=== PATIENT | female | born 1995 | race Caucasian/White ===

== ENCOUNTER → 2016-11-08 | Outpatient (CLI) | payer OTHER ==
[~2016-11-08] MED LIST: FERR325T PO; IBUP-232 PO; PRENCAP PO; SENN1TAB PO; UNIS25TA2 PO; VITA25TA PO
== END ==
LOC: HPND 08:45
PROVIDERS: ATTEND Family Medicine
DX: Z36 Encounter for antenatal screening of mother (principal)
CPT/HCPCS: 76811

== ENCOUNTER → 2016-12-26 | Outpatient (CLI) | payer OTHER | LOC: HPND 09:30 | PROVIDERS: ATTEND Family Medicine | DX: O99.332 Smoking (tobacco) complicating pregnancy, second trimester (principal); Z3A.26 26 weeks gestation of pregnancy | CPT/HCPCS: 76816 ==

== ENCOUNTER → 2017-01-23 | Outpatient (CLI) | payer OTHER ==
[~2017-01-23] MED LIST changes: -UNIS25TA2 PO; -VITA25TA PO
== END ==
LOC: HPND 09:41
PROVIDERS: ATTEND Family Medicine
DX: O36.5930 Maternal care for other known or suspected poor fetal growth, third trimester, not applicable or unspecified (principal); O99.333 Smoking (tobacco) complicating pregnancy, third trimester; Z3A.32 32 weeks gestation of pregnancy
CPT/HCPCS: 76816

== ENCOUNTER → 2017-02-14 | Outpatient (CLI) | payer OTHER | LOC: HPND 10:14 | PROVIDERS: ATTEND Family Medicine | DX: O36.5930 Maternal care for other known or suspected poor fetal growth, third trimester, not applicable or unspecified (principal); O99.333 Smoking (tobacco) complicating pregnancy, third trimester; Z3A.35 35 weeks gestation of pregnancy | CPT/HCPCS: 76816 ==

== ENCOUNTER 2017-03-06 10:41 | Inpatient (IN) | payer OTHER ==
[2017-03-06] VITALS (13 sets, daily range): BP systolic 108–124; BP diastolic 67–87; PULSE 72–81; RESP 16–20; TEMP 97.6–98.2
[~2017-03-06 10:41] MED LIST changes: -IBUP-232 PO; -SENN1TAB PO
[2017-03-06] MEDS ORDERED: LACTATED RINGER'S 1000 ML INJ 1,000 ML IV PRN (12:12)
[2017-03-06] MEDS ORDERED: MINERAL OIL 10 ML VIAL TOPICAL PRN (12:15)
[2017-03-06] MEDS ORDERED: SODIUM CHLORID 0.9% 500 ML INJ 500 ML IV PRN (12:15)
[2017-03-06] MEDS ORDERED: OXYTOCIN 30 UNITS-500ML PREMIX 500 ML IV ONE (12:15)
[2017-03-06] MEDS ORDERED: CITRIC ACID-SODIUM CITRATE LIQ 30 ML UDC PO SCH (12:15)
[2017-03-06] MEDS ORDERED: LIDOCAINE HCL 1% 50 ML VIAL INFIL PRN (12:15)
[2017-03-06] MEDS ORDERED: LIDOCAINE HCL 1% 50 ML VIAL I-DERMAL PRN (12:15)
--- NOTE | 2017-03-06 12:22 | HHI.HP ---
HPI Chief Complaint Induction of Labor for IUGR Date Seen: Mar 06, 2017 Time Seen: 12:15 Travel History International Travel<30 Days: No Contact w/Intl Traveler<30Days: No History of Present Illness HPI Patient is a 28-year-old at 38 and 5/7 weeks gestation by LMP, GOMEZ 03/15/2017 , who presents as a direct admission from [facility] due to IUGR. She has been following with [facility] for IUGR, which is asymmetric, and [facility] recommends delivery per report on 03/06/17. She denies leakage of fluid, vaginal bleeding, and contractions. She feels baby moving regularly. She denies LAGOS/N/V/D /fever/sick contacts/SOB/calf pain/dizziness/seeing spots. OB care is with Dr. George at the [facility]. Para: 0 : 2 History Past Medical History Medical History: Denies Significant Hx Obstetric History Obstetric History G1: 12 week SAB G2: current Past Surgical History Surgical History: No Previous Surgery Family History Family History: Negative Social History Alcohol Use: No Tobacco Use: Yes (1 pack per week. Was using 1-2PPD in early ) Substance Abuse: No Allergies-Medications (Allergen,Severity, Reaction): Coded Allergies: No Known Allergies (Verified , 03/05/17) Home Meds Active Scripts Ferrous Sulfate 325 Mg [id number] Mg PO DAILY #90 TAB Ref 1 Prov:Zaira George MD R2 01/09/17 W/O Vit A W/ Fe Carbo (Active Ob 20-1-320 mg)1 Cap Cap1 Cap PO DAILY # 30 CAP Ref 6 Prov:Amador Hinton Jr., MD 07/23/16 Review of Systems Except as stated in HPI: all other systems reviewed are Neg Physical Exam Narrative GENERAL: Well-nourished, well-developed female in no apparent distress. SKIN: Warm and dry. No rashes. HEAD: Normocephalic and atraumatic. EYES: No scleral icterus. No injection or drainage. ENT: No nasal drainage noted. Mucous membranes pink. Airway patent. NECK: Supple, trachea midline. No JVD. CARDIOVASCULAR: Regular rate and rhythm without murmurs, gallops, or rubs. RESPIRATORY: Breath sounds equal bilaterally. No accessory muscle use. BREASTS: Bilateral exam showed no masses , no retractions, no nipple discharge. ABDOMEN/GI: Abdomen soft, non-tender, bowel sounds present, no rebound, no guarding Fundal Height: 29cm GENITOURINARY: External Genitalia: intact and normal in appearance Cervix: fingertip @ external os/0%/-3/medium/posterior. Rodrigues's Score is 1 Presentation: vertex Membranes: [intact or ruptured] Uterine Contractions: absent FHT's: Category: 1 Baseline: [-] Reactive: [-] Variability: [-] Decels: [-] EXTREMITIES: No cyanosis or edema. BACK: Nontender without obvious deformity. No CVA tenderness. NEUROLOGICAL: Awake and alert. Motor and sensory grossly within normal limits. Five out of 5 muscle strength in all muscle groups. Normal speech. Data Data Vital Signs Reviewed: Yes (not available on admission) Orders Us Ob Bpp Wo Nst Ua/Mca Dp Rpt (03/06/17 ) Admit To Inpatient (03/06/17 ) Code Status (03/06/17 12:12) Vital Signs (Adult) .Per protocol (03/06/17 12:12) Activity Oob Ad Justyna (03/06/17 12:12) Heart (03/06/17 12:12) Amnioinfusion (03/06/17 12:12) Urinary Catheter Management .ONCE (03/06/17 12:12) Lactated Ringer's 1000 Ml Inj (Lr 1000 M (03/06/17 12:12) Lactated Ringer's 1000 Ml Inj (Lr 1000 M (03/06/17 12:12) Sodium Chlorid 0.9% 500 Ml Inj (Ns 500 M (03/06/17 12:15) Sodium Chlor 0.9% 1000 Ml Inj (Ns 1000 M (03/06/17 12:32) Lidocaine 1% Inj (50 Ml) (Xylocaine 1% I (03/06/17 12:15) Citric Acid-Sodium Citrate Liq (Bicitra (03/06/17 12:15) Fentanyl Inj (Fentanyl Inj) (03/06/17 12:15) Fentanyl Inj (Fentanyl Inj) (03/06/17 12:15) Complete Blood Count With Diff (03/06/17 12:12) Hold Clot (03/06/17 12:12) Abo/Rh Blood Type (03/06/17 12:12) Urinalysis - C+S If Indicated (03/06/17 12:12) Resp Oxygen Non Rebreathe Mask (03/06/17 ) ^ Epidural / Intrathecal Infus (03/06/17 12:12) Oxytocin 30 Units-500ml Premix (Pitocin (03/06/17 12:15) Lidocaine 1% Inj (50 Ml) (Xylocaine 1% I (03/06/17 12:15) Light Mineral Oil (Muri-Lube Oil) (03/06/17 12:15) Diet Regular Basic (03/06/17 Lunch) Inpatient Certification (03/06/17 ) Specimen To Be Collected PRN (03/06/17 12:12) Assessment/Plan Assessment and Plan Intrauterine , 3rd trimester: [Category 1 tracing] Vaginal delivery expected No CTX Intact membranes Will proceed with induction of labor with Cytotec 25mcg every 4 hr Desires epidural for pain CBC, UA, T&S UDS will be ordered due to report of marijuana use. She denies other illicit marijuana. IV fluids per protocol Monitor heart tones Routine care Intrauterine Growth Restriction, 8%ile: Asymmetric, 8th percentile, EFW 2632g. SILVANO 12.1. BPP 8/8. Cephalic presentation. Placenta posterior grade 3, no previa. GBS negative: collected 02/25/2017 Seen and discussed with Dr. Lorenzana, attending and Dr. Rodriguez PGY-2 Loraine Muhammad MD R1 Mar 06, 2017 12:22
[2017-03-06] MEDS ORDERED: SODIUM CHLOR 0.9% 1000 ML INJ 1,000 ML IV PRN (12:32)
[2017-03-06] MEDS ORDERED: MISOPROSTOL 25 MCG SUPP VAGINAL ONE (13:15)
[2017-03-06] MEDS ORDERED: SODIUM CHLORIDE 0.9% FLUSH 10 ML FLUSH IV FLUSH PRN (13:15)
--- NOTE | 2017-03-06 13:40 | HHI.HP ---
History & Physical H&P Patient is 21-year-old white female at 38-39 weeks referred to labor and delivery from [facility] for induction for IUGR. She has no complaints problems at this time no bleeding pain discharge, heart rate tracing is reactive and she is not smith. Ultrasound findings today showed baby at 34 weeks 4 day size +2600 g and is been off the chart is less than the 10th percentile on growth. There is no oligohydramnios, the end-diastolic flow on umbilical cord is normal and placenta is grade 3 the patient's case was reviewed with maternal- medicine who recommended induction of labor at 38 weeks due to intrauterine growth restriction. Physical exam was done by the family medicine residents and agree with their assessment. Patient's cervix is fingertip external os uneffaced and closed at the internal os, baby in vertex presentation according ultrasound done today. Plan to cervical ripening for this patient with Cytotec through the night and then began Pitocin the morning and hopefully with artificial rupture the membranes as well Benjie Lorenzana II, MD Mar 06, 2017 13:40
[2017-03-06 14:05] LABS: AUTOMATED NEUTROPHIL # 7.4 TH/MM3 (1.8-7.7); BASOPHIL % 0.4 % (0.0-2.0); EOSINOPHIL # 0.2 TH/MM3 (0-0.4); EOSINOPHIL % 2.2 % (0.0-4.0); HEMATOCRIT 35.1 % (35.0-46.0); HEMO FLAGS DIFF FINAL; LYMPH % 22.6 % (9.0-44.0); LYMPHOCYTE # 2.5 TH/MM3 (1.0-4.8); MEAN CELL VOLUME 90.3 FL (80.0-100.0); MEAN CORPUSCULAR HEMOGLOBIN 30.4 PG (27.0-34.0); MEAN CORPUSCULAR HGB CONC 33.6 % (32.0-36.0); MONO % 8.4 % (0.0-8.0); NEUT % 66.4 % (16.0-70.0); PLATELET COUNT 184 TH/MM3 (150-450); RED BLOOD COUNT 3.88 MIL/MM3 (4.00-5.30); RED CELL DISTRIBUTION WIDTH 13.2 % (11.6-17.2); WHITE BLOOD COUNT 11.2 TH/MM3 (4.0-11.0)
[2017-03-06] MEDS: LACTATED RINGER'S 1000 ML INJ 1,000 ML IV SCH ×2 (14:13→20:56)
[2017-03-06] MEDS ORDERED: ACETAMINOPHEN 325 MG TAB PO PRN (14:15)
[2017-03-06 14:17] LABS: BACTERIA, URINE OCC /hpf; BLOOD, URINE NEG (NEG); GLUCOSE,URINE NEG (NEG); KETONE, URINE NEG (NEG); NITRITE,URINE NEG (NEG); SQUAMOUS EPITHELIAL CELL URINE 25 /hpf (0-5); TRANSITIONAL EPI CELLS, URINE <1 /hpf; URINE COLOR YELLOW (YELLW/STRAW)
[2017-03-06 14:19] LABS: COMMENT (UR) CULTURE INDICATED; CULTURE IF INDICATED CULTURE INDICATED
[2017-03-06 14:28] LABS: AMPHETAMINE, URINE NEG (NEG); BARBITURATES, URINE NEG (NEG); COCAINE, URINE NEG (NEG)
--- NOTE | 2017-03-06 17:01 | PD.LABORPN ---
Subjective Subjective Patient resting comfortably in bed. Endorses movement but denies feeling contractions. No acute concerns at this time. Objective Vital Signs Vital Signs Date Time Temp Pulse Resp B/P Pulse Ox O2 Delivery O2 Flow Rate FiO2 03/06/17 16:49 97.6 03/06/17 12:30 16 03/06/17 12:22 98.2 Objective Pelvic Exam at 1415: Cervix: Mid position, soft Dilatation: 1 Effacement: 0 Station: -2 Presentation: [-] Membranes: Intact Uterine Contractions: q2 FHT's: Category: 1 Baseline: 125 Reactive: Accelerations present Variability: Moderate Decels: None Assessment/Plan Assessment and Plan 21-year-old female at 38/5. Admitted for induction due to IUGR 1. IUP: * Routine labor care * Category 1 tracing reassuring, * IUGR found on ultrasound which is now less than 8th % * Induction with Cytotec q4 * Vaginal delivery expected, with good contraction pattern 2. GBS negative 3. Tobacco and marijuana use * Patient has decreased use frequency since beginning of * Has previously been counseled about importance of cessation sdw Zaira Dunlap MD R2 Mar 06, 2017 17:01
--- NOTE | 2017-03-06 18:52 | PD.LABORPN ---
Subjective Subjective Resting comfortably. Will intermittently feel contractions but they are not painful. No other concerns at this time Objective Vital Signs Vital Signs Date Time Temp Pulse Resp B/P Pulse Ox O2 Delivery O2 Flow Rate FiO2 03/06/17 18:25 74 121/70 03/06/17 18:24 20 03/06/17 16:49 97.6 03/06/17 16:15 18 03/06/17 12:30 16 03/06/17 12:22 98.2 Objective Pelvic Exam at 1815: Cervix: soft Dilatation: 1 Effacement: 50 Station: -1 Presentation: [-] Membranes: intact Uterine Contractions: q2-4min FHT's: Category: 1 Baseline: 130 Reactive: accels present Variability: moderate Decels: none Assessment/Plan Assessment and Plan 21-year-old female at 38/5. Admitted for induction due to IUGR 1. IUP: * Routine labor care * Category 1 tracing reassuring, * IUGR found on ultrasound which is now <8th % * Induction with Cytotec q4hr, will wait on next dose to continue monitoring contraction for the next 30-60min. If pattern continues q2-4min, will go ahead and give next dose. Consider decreasing Cytotec dosing to q6hr based on contraction pattern. tracing continues to be reassuring. * Vaginal delivery expected, with good contraction pattern * Encourage ambulate and using birthing ball if strip continues to look good. 2. GBS negative 3. Tobacco and marijuana use * Patient has decreased use frequency since beginning of * Has previously been counseled about importance of cessation dw Dr. Salomón George,Zaira Pisano MD R2 Mar 06, 2017 18:52
[2017-03-06] MEDS ORDERED: SODIUM CHLORIDE 0.9% FLUSH 10 ML FLUSH IV FLUSH SCH (21:00)
[2017-03-06] MEDS: MISOPROSTOL 25 MCG SUPP VAGINAL PRN (21:22)
--- NOTE | 2017-03-06 23:03 | PD.LABORPN ---
Subjective Subjective Starting to feel period like cramps. Otherwise denies any other concerns. Objective Vital Signs Vital Signs Date Time Temp Pulse Resp B/P Pulse Ox O2 Delivery O2 Flow Rate FiO2 03/06/17 21:45 18 03/06/17 21:31 118/79 03/06/17 21:31 76 03/06/17 20:06 18 03/06/17 20:05 72 124/70 03/06/17 19:13 98.0 18 03/06/17 19:07 121/87 03/06/17 18:25 74 121/70 03/06/17 18:24 20 03/06/17 16:49 97.6 03/06/17 16:15 18 Objective Pelvic Exam at 2129: Cervix: posterior Dilatation:1-2 Effacement: 50 Station: -2 Presentation: [-] Membranes: intact Uterine Contractions: irregular FHT's: Category: 1 Baseline: 120 Reactive: accels present Variability:moderate Decels: none Assessment/Plan Assessment and Plan 21-year-old female at 38/5. Admitted for induction due to IUGR 1. IUP: * Routine labor care * Category 1 tracing reassuring, * IUGR found on ultrasound which is now <8th % * Induction with Cytotec q4hr, will continue with this regimen until the AM or patient makes significant progress. * Vaginal delivery expected, with good contraction pattern * Encouraged to ambulate and use birthing ball if strip continues to look good. 2. GBS negative 3. Tobacco and marijuana use * Patient has decreased use frequency since beginning of * Has previously been counseled about importance of cessation dw Dr. Salomón George,Zaira Pisano MD R2 Mar 06, 2017 23:03
[2017-03-07] VITALS (23 sets, daily range): BP systolic 89–118; BP diastolic 58–77; PULSE 58–83; RESP 16–18; TEMP 97.8–98.7
--- NOTE | 2017-03-07 02:06 | PD.LABORPN ---
Subjective Subjective Resting comfortably. Endorses very mild nausea but otherwise doing well. Objective Vital Signs Vital Signs Date Time Temp Pulse Resp B/P Pulse Ox O2 Delivery O2 Flow Rate FiO2 03/07/17 01:37 98.2 03/07/17 01:37 18 03/07/17 01:36 67 107/58 03/07/17 00:27 18 03/07/17 00:26 63 113/75 03/06/17 22:56 98.2 18 03/06/17 22:55 81 108/67 03/06/17 21:45 18 03/06/17 21:31 118/79 03/06/17 21:31 76 03/06/17 20:06 18 03/06/17 20:05 72 124/70 03/06/17 19:13 98.0 18 03/06/17 19:07 121/87 03/06/17 19:07 73 03/06/17 18:25 74 121/70 03/06/17 18:24 20 Objective Pelvic Exam at 2129: Cervix: Posterior Dilatation: 1-2 Effacement: 50 Station: -2 Presentation: [-] Membranes: Intact Uterine Contractions: q2-3min FHT's: Category: 1 Baseline: 120 Reactive: Accelerations present Variability: Moderate Decels: None Assessment/Plan Assessment and Plan 21-year-old female at 38/6. Admitted for induction due to IUGR 1. IUP: * Routine labor care * Category 1 tracing reassuring, * IUGR found on ultrasound which is now <8th % * Induction with Cytotec q4hr, will continue with this regimen until the AM or patient makes significant progress. * Vaginal delivery expected, with good contraction pattern * Encouraged to ambulate and use birthing ball if strip continues to look good. 2. GBS negative 3. Tobacco and marijuana use * Patient has decreased use frequency since beginning of * Has previously been counseled about importance of cessation dw Dr. Salomón George,Zaira Pisano MD R2 Mar 07, 2017 02:05
[2017-03-07] MEDS: MISOPROSTOL 25 MCG SUPP VAGINAL PRN (02:30)
[2017-03-07] MEDS ORDERED: ONDANSETRON HCL 4 MG/2 ML VIAL IV PRN (05:30)
--- NOTE | 2017-03-07 06:41 | PD.LABORPN ---
Subjective Subjective Patient starting to have more painful contractions. Also endorses some nausea. Did have 1 episode of vomiting and was given Zofran. Patient otherwise doing well. (Zaira George MD R2) Objective Vital Signs Vital Signs Date Time Temp Pulse Resp B/P Pulse Ox O2 Delivery O2 Flow Rate FiO2 03/07/17 05:36 18 03/07/17 05:35 82 109/65 03/07/17 04:49 18 03/07/17 04:48 83 95/62 03/07/17 02:45 98.0 03/07/17 02:43 18 03/07/17 02:42 89/60 03/07/17 02:42 78 03/07/17 01:37 98.2 03/07/17 01:37 18 03/07/17 01:36 67 107/58 03/07/17 00:27 18 03/07/17 00:26 63 113/75 03/06/17 22:56 98.2 18 03/06/17 22:55 81 108/67 Objective Pelvic Exam at 0245: Cervix: Soft, posterior Dilatation: 1-2 Effacement: 60 Station: -2 Presentation: Vertex Membranes: Intact Uterine Contractions: q3-4min FHT's: Category: 1 Baseline: 110 Reactive: Accelerations present Variability: Moderate Decels: None (Zaira George MD R2) Assessment/Plan Assessment and Plan 21-year-old female at 38/6. Admitted for induction due to IUGR 1. IUP: * Routine labor care * Labor induction: -Cytotec q4hr x3 -Begin Pitocin at 2-1-30 this a.m. * Category 1 tracing reassuring, * IUGR found on ultrasound which is now <8th % * Vaginal delivery expected 2. GBS negative 3. Tobacco and marijuana use * Patient has decreased use frequency since beginning of * Has previously been counseled about importance of cessation wdw Dr. Tidwell (Zaira George MD R2) Assessment and Plan Patient seen and examined, discussed with resident team. I agree with assessment and managemetn as documented and discussed with me. Anticipate vaginal delivery (Elodia Tidwell MD) Zaira George MD R2 Mar 07, 2017 06:41 Elodia Tidwell MD Mar 07, 2017 15:42
[2017-03-07] MEDS ORDERED: OXYTOCIN 30 UNITS-500ML PREMIX 500 ML IV SCH (06:45)
[2017-03-07] MEDS: LACTATED RINGER'S 1000 ML INJ 1,000 ML IV SCH ×2 (06:47→08:54)
--- NOTE | 2017-03-07 08:53 | PD.LABORPN ---
Subjective Subjective Patient seen and evaluated at bedside. She has been nauseous this morning, s/p Zofran x 1 IV. VS reviewed: afebrile, bp wnl. Pitocin is at 3mU/min. Nursing assessment notable for possible 6cm dilation, but patient continues to be nauseous. CTX feeling stronger. (Loraine Muhammad MD R1) Objective Vital Signs Vital Signs Date Time Temp Pulse Resp B/P Pulse Ox O2 Delivery O2 Flow Rate FiO2 03/07/17 07:06 58 03/07/17 07:06 97.9 18 03/07/17 07:06 103/69 03/07/17 06:46 18 03/07/17 06:45 97.8 03/07/17 06:34 18 03/07/17 06:32 63 118/77 03/07/17 05:36 18 03/07/17 05:35 82 109/65 03/07/17 04:49 18 03/07/17 04:48 83 95/62 03/07/17 02:45 98.0 03/07/17 02:43 18 03/07/17 02:42 89/60 03/07/17 02:42 78 03/07/17 01:37 98.2 03/07/17 01:37 18 03/07/17 01:36 67 107/58 Objective Pelvic Exam: most recent nursing assessment 6cm/100%/0 Presentation: vertex Membranes: intact Uterine Contractions: q2-3 min FHT's: Category: 1 Baseline: 120 Reactive: to 150 Variability: mod Decels: absent (Loraine Muhammad MD R1) Assessment/Plan Assessment and Plan 21-year-old female at 38/6. Admitted for induction due to IUGR 1. IUP, villanueva : * Routine labor care * Labor induction: -Cytotec q4hr x3 -Began Pitocin at 2-1-30 this a.m., now at 3mu/min * Category 1 tracing reassuring, * IUGR found on ultrasound which is now <8th % * Vaginal delivery expected 2. GBS negative 3. Tobacco and marijuana use * Patient has decreased use frequency since beginning of * Has previously been counseled about importance of cessation sdw Dr. Tobias, Dr. Tidwell, Dr. Rodriguez (Loraine Muhammad MD R1) Assessment and Plan Patient seen with the resident. Agree with the above resident assessment and plan. (Priya Tobias MD) Loraine Muhammad MD R1 Mar 07, 2017 08:53 Priya Tobias MD Mar 07, 2017 09:08
[2017-03-07] MEDS ORDERED: ONDANSETRON HCL 4 MG/2 ML VIAL IV PUSH ONE (09:00)
[2017-03-07] MEDS ORDERED: ePHEDrine/NS 25 MG/5 ML SYR ONE (09:05)
[2017-03-07] MEDS ORDERED: fentaNYL 2MCG-BUPIV 0.125% INJ 100 ML ONE (09:06)
--- NOTE | 2017-03-07 10:13 | PD.LABORPN ---
Subjective Subjective Patient seen and examined with Dr. Tobias. Patient is comfortable with epidural. Cervical exam is notable for cervix 6-7 cm/90% effaced/0 Station. Amniotomy was performed, clear fluid. Attempt to place IUPC was unsuccessful. Repeat exam after amniotomy showed a well engaged vertex presentation. Assessment/plan: 21-year-old female at 38/6. Admitted for induction due to IUGR 1. IUP, villanueva : * Routine labor care * Labor induction: -Cytotec q4hr x3 -Began Pitocin at 2-1-30 this a.m., now at 3mu/min, continue per protocol * Category 1 tracing reassuring, * IUGR found on ultrasound which is now <8th % * Vaginal delivery expected * AROM with clear fluid 2. GBS negative 3. Tobacco and marijuana use * Patient has decreased use frequency since beginning of * Has previously been counseled about importance of cessation Seen and discussed with Dr. Tobias (Loraine Muhammad MD R1) Objective Vital Signs Vital Signs Date Time Temp Pulse Resp B/P Pulse Ox O2 Delivery O2 Flow Rate FiO2 03/07/17 07:06 58 03/07/17 07:06 97.9 18 03/07/17 07:06 103/69 03/07/17 06:46 18 03/07/17 06:45 97.8 03/07/17 06:34 18 03/07/17 06:32 63 118/77 03/07/17 05:36 18 03/07/17 05:35 82 109/65 03/07/17 04:49 18 03/07/17 04:48 83 95/62 03/07/17 02:45 98.0 03/07/17 02:43 18 03/07/17 02:42 89/60 03/07/17 02:42 78 (Loraine Muhammad MD R1) Assessment/Plan Assessment and Plan The exam, history, and the medical decision-making described in the above note were completed with the assistance of the resident physician. I reviewed and agree with the findings presented. I attest that I had a [id number] encounter with the patient on the same day, and personally performed and documented my assessment and findings in the medical record. (Priya Tobias MD) Loraine Muhammad MD R1 Mar 07, 2017 10:13 Priya Tobias MD Mar 12, 2017 15:13
[2017-03-07] MEDS ORDERED: BENZOCAINE 20% TOPICAL SPRAY 60 ML CAN TOPICAL PRN (12:15)
[2017-03-07] MEDS ORDERED: ONDANSETRON ODT 4 MG TAB PO PRN (12:15)
[2017-03-07] MEDS ORDERED: ZOLPIDEM TARTRATE 5 MG TAB PO PRN (12:15)
[2017-03-07] MEDS ORDERED: WITCH HAZEL 50%/GLYCERIN 12.5% 40 PAD JAR TOPICAL PRN (12:15)
[2017-03-07] MEDS ORDERED: ACETAMINOPHEN 325 MG TAB PO PRN (12:15)
[2017-03-07] MEDS ORDERED: SODIUM CHLORIDE 0.9% FLUSH 10 ML FLUSH IV FLUSH PRN (12:15)
[2017-03-07] MEDS ORDERED: ALUMINUM/MAGNESIUM/SIMETH 30 ML CUP PO PRN (12:15)
[2017-03-07] MEDS ORDERED: oxyCODONE/ACETAMINOPHEN 5 MG/325 MG TAB PO PRN ×2 (12:15)
--- NOTE | 2017-03-07 12:16 | PD.OB.DELI ---
Delivery Date: Mar 07, 2017 Anesthesia: Epidural Episiotomy: None Vaginal Delivery: Normal Presentation: Compound (left hand on right shoulder) Nuchal Cord: None Delayed cord clamping (45 sec): Yes Infant: Female One Minute : 9 Five Minute : 9 Weight: weight not available as patient is doing skin to skin for 1 hour Placenta: Spontaneous delivery, Intact, 3 vessel cord Laceration: Vaginal laceration (1 vaginal at the 6 o'clock position (2nd Degree ) and 2 periurethral first-degree) Repair: Vicryl running (vaginal second-degree laceration. 2. Periurethral lacerations were repaired with 3-0 Vicryl with subcutaneous) Additional Information Uncomplicated vaginal delivery delivered with compound involving left hand over right shoulder. Will need to monitor clavicles closely. Hemostasis achieved with pressure on the periurethral lacerations and with suture repair of vaginal second degree laceration. Supervised and assisted by Dr. Raymundo and Dr. Tobias (Zaira George MD R2) Additional Information Attending note: I was present for entire delivery and laceration repair. ELODIA RAYMUNDO MD (Elodia Raymundo MD) Zaira George MD R2 Mar 07, 2017 12:16 Elodia Raymundo MD Mar 07, 2017 15:41
[2017-03-07] MEDS ORDERED: NO SYSTEM NARCOTICS PRN (13:00)
[2017-03-07] MEDS ORDERED: ePHEDrine/NS 25 MG/5 ML SYR IV PRN (13:00)
[2017-03-07] MEDS ORDERED: DO NOT ADMINISTER ANTICOAGULANTS PRN (13:00)
[2017-03-07] MEDS ORDERED: DIPHTH/TETANUS/ACEL PERTUSSIS (BOOSTER) 0.5 ML VIAL/PFS IM ONE (16:00)
[2017-03-07] MEDS ORDERED: MEASLES, MUMPS, RUBELLA VACCINE 0.5 ML VIAL SQ ONE (16:00)
[2017-03-07] MEDS ORDERED: SODIUM CHLORIDE 0.9% FLUSH 10 ML FLUSH IV FLUSH SCH (21:00)
[2017-03-07] MEDS: IBUPROFEN 600 MG TAB PO PRN (22:15)
[2017-03-08 08:15] VITALS: BP 95/72; PULSE 76; RESP 16; TEMP 98.1
--- NOTE | 2017-03-08 08:40 | HHI.OB ---
Subjective Post Day: 1 Remarks Patient is doing well this morning. She is not in any pain. She is ambulating and voiding without difficulty. She is planning on breast-feeding, and understands she needs to quit marijuana. She is planning on pumping her breast milk. Vaginal bleeding has improved. Denies fever, chills, nausea, vomiting. Objective Vitals/I&O Vital Signs Date Time Temp Pulse Resp B/P Pulse Ox O2 Delivery O2 Flow Rate FiO2 03/07/17 19:50 98.7 18 03/07/17 19:49 65 107/72 03/07/17 14:35 69 100/72 03/07/17 14:35 98.1 18 03/07/17 13:00 82 16 117/74 03/07/17 12:55 16 03/07/17 12:45 76 101/62 03/07/17 12:40 18 03/07/17 12:40 16 03/07/17 12:30 69 101/63 Objective Remarks GENERAL: Well-nourished, well-developed patient. CARDIOVASCULAR: Regular rate and rhythm without murmurs, gallops, or rubs. RESPIRATORY: Breath sounds equal bilaterally. No accessory muscle use. ABDOMEN/GI: Abdomen soft, non-tender. Fundus: Firm, non-tender at umbilicus. GENITOURINARY: Light to moderate bleeding. EXTREMITIES: No cyanosis or edema, non-tender, without signs of DVT. Medications and IVs Current Medications Medications (Trade) Dose Ordered Sig/Phyllis Route Start Time Stop Time Status Last Admin Ondansetron HCl 4 mg 4 mg Q6H PRN IV 03/07/17 05:30 03/07/17 05:26 (Pitocin 30 Units-NS 500 ml Premix) 500 ml @ 0 mls/hr TITRATE IV 03/07/17 06:45 03/07/17 07:37 (NS Flush) 2 ml BID IV FLUSH 03/07/17 21:00 (NS Flush) 2 ml UNSCH PRN IV FLUSH 03/07/17 12:15 (Tylenol) 650 mg Q4H PRN PO 03/07/17 12:15 (Motrin) 600 mg Q6H PRN PO 03/07/17 12:15 03/07/17 22:15 (Percocet 5-325 Mg) 1 tab Q4H PRN PO 03/07/17 12:15 (Percocet 5-325 Mg) 2 tab Q4H PRN PO 03/07/17 12:15 (Americaine 20% Top Spr) 1 spray Q4H PRN TOPICAL 03/07/17 12:15 (Tucks Pads) 1 applic QID PRN TOPICAL 03/07/17 12:15 (Evelyne-Colace) 2 tab Q12H PRN PO 03/07/17 12:15 (Ambien) 5 mg HS PRN PO 03/07/17 12:15 (Mag-Al Plus Susp Liq) 15 ml Q8H PRN PO 03/07/17 12:15 (Zofran Odt) 4 mg Q6H PRN PO 03/07/17 12:15 Miscellaneous Information No systemic narcotics to be given except... UNSCH PRN .XX 03/07/17 13:00 03/08/17 12:59 Miscellaneous Information DO NOT ADMINISTER ANY ANTICOAGUL... UNSCH PRN .XX 03/07/17 13:00 03/08/17 12:59 (ePHEDrine/NS 25 MG/5 ML SYR) 10 mg UNSCH PRN IV 03/07/17 13:00 03/08/17 12:59 Assessment/Plan Assessment and Plan 21 year old G 2 P1 PPD1 1. Care - AFVSS since delivery - Motrin prn pain - Encouraged OOB, as tolerated - Pelvic rest x 6 weeks - Will f/u with Dr. Russell in 4-6 weeks - Anticipate d/c tomorrow Discharge Planning Likely tomorrow Diogo Gay MD R2 Mar 08, 2017 08:40
[2017-03-08] MEDS: IBUPROFEN 600 MG TAB PO PRN ×2 (15:30→22:48)
[2017-03-08] MEDS: DOCUSATE SODIUM 50 MG/SENNA 8.6 MG TAB PO PRN (15:38)
[2017-03-09] MEDS: DOCUSATE SODIUM 50 MG/SENNA 8.6 MG TAB PO PRN (05:36)
[2017-03-09] MEDS: IBUPROFEN 600 MG TAB PO PRN (05:36)
[2017-03-09] MEDS ORDERED: SENN1TAB PO (07:42)
[2017-03-09] MEDS ORDERED: IBUP-232 PO (07:42)
--- NOTE | 2017-03-09 07:43 | HHI.DCPOC ---
Discharge Care Plan Diagnosis: (1) Vaginal delivery Report Symptoms to Your Doctor -Temperature above 100.5 degrees -Redness, of incision or excessive or foul smelling drainage -Unusual pain or calf pain -Increased vaginal bleeding -Painful or difficulty urinating -Feelings of extreme sadness or anxiety after 2 weeks Goals to Promote Your Health * To prevent worsening of your condition and complications * To maintain your health at the optimal level Directions to Meet Your Goals Take your medications as prescribed Follow your dietary instruction Follow activity as directed Ensure plenty of rest for recovery Drink fluids for hydration Keep your appointments as scheduled Take your immunizations and boosters as scheduled If your symptoms worsen call your PCP, if no PCP go to Urgent Care Center or Emergency Room Smoking is Dangerous to Your Health. Avoid second hand smoke Call the 24-hour crisis hotline for domestic abuse at Diogo Gay MD R2 Mar 09, 2017 07:43
[2017-03-09 07:50] VITALS: BP 108/76; PULSE 62; RESP 18; TEMP 97.7
--- NOTE | 2017-03-09 08:30 | HHI.OB ---
Subjective Post Day: 2 Remarks 21 year old female s/p induced vaginal delivery due to IUGR at 38/6 wks gestation, PPD 2. AFVSS. Patient reports she is feeling well. Bleeding is decreasing and pain is well-controlled. She is formula feeding and bonding well with baby. Ambulating without difficulties. She is tolerating a diet without nausea or vomiting. She has not had a bowel movement. She has passed gas. Denies chest pain, dysuria, shortness of breath, or calf pain. (Zaira Mcclain MD R2) Objective Vitals/I&O Vital Signs Date Time Temp Pulse Resp B/P Pulse Ox O2 Delivery O2 Flow Rate FiO2 03/09/17 07:50 97.7 62 18 108/76 Objective Remarks GENERAL: Well-nourished, well-developed patient. CARDIOVASCULAR: Regular rate and rhythm without murmurs, gallops, or rubs. RESPIRATORY: Breath sounds equal bilaterally. No accessory muscle use. ABDOMEN/GI: Abdomen soft, non-tender. Fundus: Firm, non-tender at umbilicus. GENITOURINARY: Light to moderate bleeding. EXTREMITIES: No cyanosis or edema, non-tender, without signs of DVT. Medications and IVs Current Medications Medications (Trade) Dose Ordered Sig/Phyllis Route Start Time Stop Time Status Last Admin Ondansetron HCl 4 mg 4 mg Q6H PRN IV 03/07/17 05:30 03/07/17 05:26 (Pitocin 30 Units-NS 500 ml Premix) 500 ml @ 0 mls/hr TITRATE IV 03/07/17 06:45 03/07/17 07:37 (NS Flush) 2 ml BID IV FLUSH 03/07/17 21:00 (NS Flush) 2 ml UNSCH PRN IV FLUSH 03/07/17 12:15 (Tylenol) 650 mg Q4H PRN PO 03/07/17 12:15 (Motrin) 600 mg Q6H PRN PO 03/07/17 12:15 03/09/17 05:36 (Percocet 5-325 Mg) 1 tab Q4H PRN PO 03/07/17 12:15 (Percocet 5-325 Mg) 2 tab Q4H PRN PO 03/07/17 12:15 (Americaine 20% Top Spr) 1 spray Q4H PRN TOPICAL 03/07/17 12:15 (Tucks Pads) 1 applic QID PRN TOPICAL 03/07/17 12:15 (Evelyne-Colace) 2 tab Q12H PRN PO 03/07/17 12:15 03/09/17 05:36 (Ambien) 5 mg HS PRN PO 03/07/17 12:15 (Mag-Al Plus Susp Liq) 15 ml Q8H PRN PO 03/07/17 12:15 (Zofran Odt) 4 mg Q6H PRN PO 03/07/17 12:15 (Zaira George MD R2) Assessment/Plan Assessment and Plan 21 year old G 2 P1 PPD2 1. Care - AFVSS since delivery - Motrin prn pain - Encouraged OOB, as tolerated - Pelvic rest x 6 weeks - Will f/u with Dr. Russell in 4-6 weeks - Anticipate d/c today [facility] (Zaira George MD R2) Attending Attestation Agree with above. D/c home today. (Ayanna Christianson MD) Zaira George MD R2 Mar 09, 2017 08:30 Ayanna Christianson MD Mar 09, 2017 09:33
[2017-03-09] MEDS ORDERED: POLYETHYLENE GLYCOL 17 GM PKG PO ONE (09:00)
[2017-03-10 08:45] LABS: BATH SALTS (MDPV) UR NEG (NEG); ECSTASY (MDMA) UR NEG (NEG); GABAPENTIN UR NEG (NEG); HEROIN (6-ACETYLMORPHINE) UR NEG (NEG); HYDROMORPHONE U NEG (NEG); K2 SPICE UR NEG (NEG); OBMETHADONE UR NEG (NEG); OXYCODONE (PERCODAN) NEG (NEG); PHENCYCLIDINE URINE NEG (NEG)
== END 2017-03-09 13:52 | disposition home or self-care (01) | DRG 775 ==
LOC: HPND 10:41 → H2EA 11:59 → H2EB 19:25 → H1EA 03-07 13:31
PROVIDERS: ADMIT Obstetrics & Gynecology Maternal & Fetal Medicine; ATTEND Obstetrics & Gynecology Maternal & Fetal Medicine
PROC: 3E0P7GC Introduction of Other Therapeutic Substance into Female Reproductive, Via Natural or Artificial Opening (ICD-10-PCS; 2017-03-06)
PROC: 10E0XZZ Delivery of Products of Conception, External Approach (ICD-10-PCS; principal; 2017-03-07)
PROC: 0KQM0ZZ Repair Perineum Muscle, Open Approach (ICD-10-PCS; 2017-03-07)
PROC: 0UQMXZZ Repair Vulva, External Approach (ICD-10-PCS; 2017-03-07)
PROC: 10907ZC Drainage of Amniotic Fluid, Therapeutic from Products of Conception, Via Natural or Artificial Opening (ICD-10-PCS; 2017-03-07)
PROC: 3E0S3CZ (ICD-10-PCS; 2017-03-07)
PROC: 00HU33Z Insertion of Infusion Device into Spinal Canal, Percutaneous Approach (ICD-10-PCS; 2017-03-07)
DX: O36.5930 Maternal care for other known or suspected poor fetal growth, third trimester, not applicable or unspecified (principal); O99.324 Drug use complicating childbirth; F12.90 Cannabis use, unspecified, uncomplicated; O99.333 Smoking (tobacco) complicating pregnancy, third trimester; O75.89 Other specified complications of labor and delivery; R11.2 Nausea with vomiting, unspecified; O32.6XX0 Maternal care for compound presentation, not applicable or unspecified; O70.1 Second degree perineal laceration during delivery; O71.82 Other specified trauma to perineum and vulva; Z3A.38 38 weeks gestation of pregnancy; Z37.0 Single live birth
CPT/HCPCS: 76816; 76819; 76820; 76821; 80307; 81001; 85025; 86900; 86901; 87086; 90715; G0481; J2405; J2590; J3010; J7120

== ENCOUNTER 2017-09-29 07:09 | Day surgery (SDC) | payer OTHER ==
[~2017-09-29] VITALS: Ht 162.6 cm; Wt 57.0 kg
[~2017-09-29 07:09] MED LIST changes: +ALBUAER3 INH; +CRYS28TA PO; -FERR325T PO; -PRENCAP PO; +SERT-132 PO; +TRICTAB PO
[2017-09-29 07:10] VITALS: BP 110/54; PULSE 77; RESP 18; TEMP 97.8; O2SAT 97
[2017-09-29] MEDS ORDERED: TETANUS/DIPHTHERIA TOXOID ADULT 0.5 ML VIAL IM ONE (07:15)
[2017-09-29] MEDS ORDERED: LIDOCAINE HCL 1% 30 ML VIAL INFIL ONE (07:15)
[2017-09-29] MEDS ORDERED: ceFAZolin 2 GM PREMIX 50 ML IV ONE (07:15)
[2017-09-29] MEDS ORDERED: SODIUM CHLOR 0.9% 1000 ML INJ 1,000 ML IV ONE (07:15)
--- NOTE | 2017-09-29 07:22 | PD ---
HPI Chief Complaint: Laceration/Skin Injury Time Seen by Provider: 07:09 Travel History International Travel<30 days: No Contact w/Intl Traveler<30days: No History of Present Illness HPI The patient is a 22-year-old female who presents to the emergency department for laceration to the volar aspect of the right forearm. The patient states she broke a window earlier tonight, resulting in a laceration to the anterior aspect of the right forearm. She is right-hand dominant. She complains of numbness and tingling of the entire right hand, denies any specific distribution. The patient states she placed a towel over it to hold pressure initially which did resolve the bleeding. Last tetanus shot is unknown. She does admit to smoking marijuana last night, but denies any other illicit drug use or alcohol use. The pain is moderate, exacerbated after she placed her arm through a window, and the bleeding resolved with pressure. PFSH Past Medical History Diminished Hearing: No ?: Unknown : 1 Para: 0 Miscarriage: 1 Past Surgical History Ear Surgery: Yes (TUBE IN LEFT EAR) Oral Surgery: Yes (WISDOM RETRACTION) Tympanostomy Tube: Yes Social History Alcohol Use: No Tobacco Use: Yes (1 pack per week. Was using 1-2PPD in early ) Substance Use: Yes (POT) Allergies-Medications (Allergen,Severity, Reaction): Coded Allergies: No Known Allergies (Verified Adverse Reaction, Unknown, 09/29/17) Reported Meds & Prescriptions Reported Meds & Active Scripts Active Proair Hfa 8.5 GM Inh (Albuterol Sulfate) 90 Mcg/Act Aer 2 Puff INH Q4-6H PRN 108 mcg/actuation Cryselle-28 (Norgestrel-Ethinyl Estradiol) 0.3-30 Mg-Mcg Tab 1 Tab PO DAILY Sertraline (Sertraline HCl) 50 Mg Tab 50 Mg PO DAILY Review of Systems Except as stated in HPI: all other systems reviewed are Neg General / Constitutional: No: Fever Cardiovascular: No: Chest Pain or Discomfort Respiratory: No: Shortness of Breath Gastrointestinal: Positive: Nausea Musculoskeletal: Positive: Pain Skin: Positive Other (laceration to the lower aspect of the right forearm) Neurologic: Positive: Paresthesia, Sensory Disturbance Physical Exam Narrative GENERAL: Awake, alert, pleasant 22 year-old female who appears her stated age and appears slightly anxious. SKIN: Focused skin assessment warm/dry. 6 cm laceration to the volar aspect of the right forearm which involves subcutaneous tissue. HEAD: Atraumatic. Normocephalic. EYES: Pupils equal and round. No scleral icterus. No injection or drainage. ENT: No nasal bleeding or discharge. Mucous membranes pink and moist. NECK: Trachea midline. No JVD. CARDIOVASCULAR: Regular, tachycardic with a heart rate 105. RESPIRATORY: No accessory muscle use. Clear to auscultation. Breath sounds equal bilaterally. GASTROINTESTINAL: Abdomen soft, non-tender, nondistended. MUSCULOSKELETAL: The patient has a 6 cm transverse laceration to the lower aspect the right mid forearm. She is able flex the wrist as well as the MCP, PIP, DIP of digits 2 through 5. She is able to oppose the thumb to the small finger. Intrinsic hand muscles are intact. Patient has palpable radial pulse, has good bounding pulses with Doppler of the ulnar and radial artery. NEUROLOGICAL: Awake and alert. No obvious cranial nerve deficits. Motor grossly within normal limits. Normal speech. Sensation was intact to soft touch over the radial, median, and ulnar distribution, but was slightly diminished over the volar aspect of digits 5 through 2. PSYCHIATRIC: Slightly anxious. Data Data Last Documented VS Vital Signs Date Time Temp Pulse Resp B/P (MAP) Pulse Ox O2 Delivery O2 Flow Rate FiO2 09/29/17 07:16 89 18 09/29/17 07:10 97.8 110/54 (72) 97 Orders Orders Forearm (2vws) (09/29/17 ) Sodium Chlor 0.9% 1000 Ml Inj (Ns 1000 M (09/29/17 07:15) Cefazolin 2 Gm Premix (Ancef 2 Gm Premix (09/29/17 07:15) Tetanus/Diphtheria Tox Adult (Tetanus/Di (09/29/17 07:15) Lidocaine 1% Inj (Xylocaine 1% Inj) (09/29/17 07:15) Ondansetron Inj (Zofran Inj) (09/29/17 07:45) MDM Medical Decision Making Medical Screen Exam Complete: Yes Emergency Medical Condition: Yes Medical Record Reviewed: Yes Interpretation(s) X-ray the right forearm reveals no fracture dislocation. No visible foreign body. Differential Diagnosis Differential diagnosis includes laceration, tendon laceration, muscle laceration , arterial injury, venous injury, nerve injury. Narrative Course An x-ray of the right forearm was obtained to rule out foreign body. The patient's tetanus shot was updated. The patient was administered 1 L of IV fluids and Ancef 2 g intravenously. The patient's laceration was inspected and repaired by the mid-level provider, please refer to the procedure note. The patient is advised to have the sutures removed in 10 days, monitor for signs of secondary infection. The patient is advised to follow-up with her primary physician. Medications as directed. Return if symptoms worsen or progress. Diagnosis Primary Impression: Laceration of right forearm Qualified Codes: S51.811A - Laceration without foreign body of right forearm, initial encounter Patient Instructions: General Instructions Additional Instructions: Wound care instructions. Follow-up with her primary physician. Suture removal in 10 days. Monitor for signs of secondary infection. Keep the area clean and dry. Med/Other Pt SpecificInfo: Prescription(s) given Scripts Ibuprofen (Ibuprofen) 600 Mg Tab 600 MG PO Q6H Y for Pain/Inflammation, #20 TAB 0 Refills Prov: Andrew Brown MD 09/29/17 Cephalexin (Keflex) 500 Mg Cap 500 MG PO Q6H for Infection for 7 Days, #28 CAP 0 Refills Prov: Andrew Brown MD 09/29/17 Disposition: 01 DISCHARGE HOME Condition: Stable Andrew Brown MD Sep 29, 2017 07:22
[2017-09-29] MEDS ORDERED: ONDANSETRON HCL 4 MG/2 ML VIAL IV PUSH ONE (07:45)
--- NOTE | 2017-09-29 07:55 | RADRPT ---
EXAM DATE/TIME: 09/29/2017 07:34 [facility] COMPARISON: No previous studies available for comparison. INDICATIONS : Right forearm laceration from window. Possible foreign body. MEDICAL HISTORY : None. SURGICAL HISTORY : None. ENCOUNTER: Initial ACUITY: 1 day PAIN SCORE: 8/10 LOCATION: Right forearm FINDINGS: Two view examination of the right forearm demonstrates no evidence of fracture or dislocation. Bony mineralization is normal. There is evidence of soft tissue injury. There is overlying gauze material which obscured some of the detail. However no definite radiopaque foreign body is demonstrated on the plain films. CONCLUSION: 1. No acute fracture or dislocation. 2. No definite radiopaque foreign body is demonstrated. However the soft tissues are obscured by over lying gauze material. Jasiel Mckeon MD on September 29, 2017 at 7:49 Board Certified Radiologist. This report was verified electronically.
--- NOTE | 2017-09-29 08:18 | PD ---
Physical Exam Time Seen by Provider: 07:45 Data Data Last Documented VS Vital Signs Date Time Temp Pulse Resp B/P (MAP) Pulse Ox O2 Delivery O2 Flow Rate FiO2 09/29/17 07:16 89 18 09/29/17 07:10 97.8 110/54 (72) 97 Orders Orders Forearm (2vws) (09/29/17 ) Sodium Chlor 0.9% 1000 Ml Inj (Ns 1000 M (09/29/17 07:15) Cefazolin 2 Gm Premix (Ancef 2 Gm Premix (09/29/17 07:15) Tetanus/Diphtheria Tox Adult (Tetanus/Di (09/29/17 07:15) Lidocaine 1% Inj (Xylocaine 1% Inj) (09/29/17 07:15) Ondansetron Inj (Zofran Inj) (09/29/17 07:45) MDM Medical Record Reviewed: Yes Supervised Visit with LAYLA: No Narrative Course The patient presents with lacerations to the right forearm. The lacerations were repaired with sutures, she verbally consented. See accompanying procedural notes. Procedures Procedure Narrative LACERATION LOCATION: Right forearm LENGTH: 5 cm NUMBER OF STITCHES/OTILIO: 12 REPAIR: The area of the laceration was prepped with Betadine and sterilely draped. Blood pressure cuff was used as a tourniquet. The laceration was infiltrated with 1% lidocaine. The wound was copiously irrigated and explored without evidence of muscle damage but no evidence of tendon, neurovascular injury. The wound was closed using 3 simple interrupted sutures of 5-0 Vicryl were used to approximate the subcutaneous tissue. 9 simple interrupted sutures of 4-0 Prolene were used to close the cutaneous portion of the wound.. This was a 2 layer repair. A sterile dressing was applied. The patient was advised to keep the dressing clean and dry. Patient tolerated the procedure well. LACERATION LOCATION: Right forearm LENGTH: 2-3 cm NUMBER OF STITCHES/OTILIO: 4 REPAIR: The area of the laceration was prepped with Betadine and sterilely draped. The laceration was infiltrated with 1% lidocaine. The wound was copiously irrigated and explored without evidence of foreign body, tendon injury or neurovascular injury. The wound was closed using 4-0 Prolene simple interrupted. This was a single layer repair. A sterile dressing was applied. The patient was advised to keep the dressing clean and dry. Patient tolerated the procedure well. Condition: Stable Scout Mejia Sep 29, 2017 08:18
[2017-09-29] MEDS ORDERED: IBUP-232 PO (08:20)
[2017-09-29] MEDS ORDERED: CEPH-460 PO (08:20)
[2017-09-29 09:18] VITALS: BP 93/66; PULSE 77; RESP 18; O2SAT 98
[2017-09-29 09:21] LABS: AUTOMATED NEUTROPHIL # 5.5 TH/MM3 (1.8-7.7); BASOPHIL # 0.1 TH/MM3 (0-0.2); BASOPHIL % 0.4 % (0.0-2.0); EOSINOPHIL % 6.9 % (0.0-4.0); HEMATOCRIT 40.4 % (35.0-46.0); HEMOGLOBIN 13.3 GM/DL (11.6-15.3); LYMPH % 48.1 % (9.0-44.0); LYMPHOCYTE # 7.2 TH/MM3 (1.0-4.8); MEAN CELL VOLUME 89.8 FL (80.0-100.0); MEAN CORPUSCULAR HEMOGLOBIN 29.6 PG (27.0-34.0); MEAN PLATELET VOLUME 9.9 FL (7.0-11.0); MONO % 7.4 % (0.0-8.0); MONOCYTE # 1.1 TH/MM3 (0-0.9); NEUT % 37.2 % (16.0-70.0); PLATELET COUNT 284 TH/MM3 (150-450); RED CELL DISTRIBUTION WIDTH 13.8 % (11.6-17.2); WHITE BLOOD COUNT 14.9 TH/MM3 (4.0-11.0)
[2017-09-29 09:25] LABS: PROTHROMBIN TIME - PATIENT 10.5 SEC (9.8-11.6)
[2017-09-29] MEDS ORDERED: LIDOCAINE HCL 2% 50 ML VIAL ONE (09:30)
[2017-09-29] MEDS ORDERED: BACITRACIN TOP OINT 15 GM TUBE ONE (09:31)
[2017-09-29] MEDS ORDERED: BUPIVACAINE HCL PF 0.5% 30 ML VIAL ONE (09:31)
[2017-09-29] MEDS ORDERED: NEOMYCIN/POLYMYXIN 1 ML G.U. IRRIGANT ONE (09:32)
[2017-09-29 09:34] LABS: BICARBONATE 12.7 MEQ/L (21.0-32.0); CALCIUM 9.1 MG/DL (8.5-10.1); CREATININE 1.11 MG/DL (0.50-1.00)
--- NOTE | 2017-09-29 10:23 | MB ---
cc: OZZY HANNAH III, M.D. DATE OF CONSULTATION: 09/29/2017 HISTORY OF PRESENT ILLNESS The patient is a 22-year-old [id number] female who came to the emergency room with history of a laceration to the volar right forearm about 2 and 1/2 hours ago, where she states she hit the window not thinking it would break but it broke and it lacerated her forearm. It has been sutured closed but there was significant bleeding and she has a hematoma that is forming rather rapidly. She does have some numbness and tingling of the right hand but it is improved since her admission. She is currently breast-feeding. PAST MEDICAL HISTORY Denied. PAST SURGICAL HISTORY 1. Tubes in left ear. 2. [place] teeth extraction. 3. Tympanostomy tubes. ALLERGIES No known drug allergies. MEDICATIONS 1. Albuterol inhaler. 2. Oral contraceptive pills. 3. Sertraline 50 mg p.o. daily. SOCIAL HISTORY Denies alcohol use but she does smoke less than half-pack per day and uses marijuana. REVIEW OF SYSTEMS The patient does not complain of any headaches, blurry or double vision. Not complaining of any cough, wheezing, shortness of breath. She is not complaining of any chest pain or palpitation. Not complaining of any nausea, vomiting, abdominal pain. She is not complaining of any burning, frequency or urgency with urination. She is not complaining of any spine, neck or back pain. She is not complaining of any anxiety, depression or suicidal ideations. She is not complaining of night sweats, fevers or chills. She is not complaining of any skin lesions, rashes or eruptions on the skin. She is not complaining of any weight loss or weight gain. IMAGING STUDIES X-rays were done. The report is no acute fracture dislocation, no definite radiopaque foreign body demonstrated, however, the soft tissues were obscured by overlying gauze material. PHYSICAL EXAMINATION GENERAL: On physical examination she is well-developed, well-nourished, in mild distress. VITAL SIGNS: The temperature is 97.8, blood pressure 93/66, heart rate 77, respiratory rate 18, pulse ox is 98%. Examination of the right upper extremity reveals full active range of motion of her hand and all of her fingers. She is guarding her right upper extremity as it is somewhat tender. There are two separate transverse oriented lacerations on the volar radial aspect of the proximal third of the forearm with an obvious hematoma forming. It is tender to palpation. Capillary refill is less than 2 seconds in all fingertips. She has a faintly palpable radial pulse. Capillary refill is 100% on my examination with her. She is awake, alert and oriented x3. She is very pleasant. She is lying flat but comfortably in her bed in the emergency room. Her respiratory effort is normal. IMPRESSION Laceration right forearm with hematoma formation. PLAN The plan is to go to the operating room urgently for exploration. The patient may have a vascular injury but we need to explore this, and I discussed this with the patient as well as the doctor and they agree and wish to proceed. MD TRISTA Brunson III/ARELIS /9:35 AM /10:00 AM
[2017-09-29] MEDS ORDERED: HEPARIN SODIUM - SQ 10,000 UNITS/ML VIAL ONE (10:44)
[2017-09-29 11:07] LABS: BANDS 4 % (0-6); LYMPHOCYTES 49 % (9-44); MONOCYTES 6 % (0-8); POLYS (SEG NEUTROPHILS) 36 % (16-70)
[2017-09-29 11:08] LABS: SMUDGE CELLS PRESENT PRESENT
[2017-09-29] MEDS ORDERED: LIDOCAINE HCL 1% PF 5 ML SYRINGE OTHER ONE (12:00)
[2017-09-29] MEDS ORDERED: ROCURONIUM INJ 50 MG/5 ML SYRINGE IV PUSH ONE (12:00)
[2017-09-29] MEDS ORDERED: DEXAMETHASONE SOD PHOS 4 MG/ML VIAL IV ONE (12:00)
[2017-09-29] MEDS ORDERED: PROPOFOL 200 MG/20 ML AMP IV ONE (12:00)
[2017-09-29] MEDS ORDERED: ONDANSETRON HCL 4 MG/2 ML VIAL IV ONE (12:00)
[2017-09-29] MEDS ORDERED: *ONDANSETRON 4 MG VIAL PERIprocedural Use ONLY ONE (13:06)
[2017-09-29] MEDS ORDERED: ASPIRIN EC 325 MG TABEC PO ONE (13:45)
[2017-09-29] MEDS ORDERED: ACETAMINOPHEN/HYDROcodone 325 MG/7.5 MG TAB PO PRN (13:45)
[2017-09-29] MEDS ORDERED: diphenhydrAMINE HCL 50 MG CAP PO PRN (13:45)
[2017-09-29] MEDS ORDERED: *PROMETHAZINE 25 MG/ML VIAL PERIprocedural use ONLY ONE (13:53)
[2017-09-29] MEDS ORDERED: *morphine SULFATE 4 MG/ML PERIprocedure ONLY ONE ×2 (13:57→14:45)
[2017-09-29] MEDS ORDERED: diphenhydrAMINE HCL 50 MG/ML VIAL IV PRN (14:00)
--- NOTE | 2017-09-29 14:36 | PD.CONS ---
[facility] By [facility] Reason for Consult Medical management Primary Care Physician Amador Hinton MD Diagnoses: History of Present Illness 22 year-old female with no significant past medical history who presented earlier today in the ED for evaluation of laceration of the right upper extremity after the patient sustained an injury by hitting a window @ home. She was seen by hand surgery who took her to the OR and performed right radial artery repair, Right FCR muscle repair. [facility] was consulted for medical management. Patient was seen in PACU, Vitals stable Review of Systems Except as stated in HPI: all other systems reviewed are Neg Past Family Social History Allergies: Coded Allergies: No Known Allergies (Verified Adverse Reaction, Unknown, 09/29/17) Past Medical History Denies any medical history Past Surgical History 1. Tubes in left ear. 2. [place] teeth extraction. 3. Tympanostomy tubes. Reported Medications 1. Albuterol inhaler. 2. Oral contraceptive pills. 3. Sertraline 50 mg p.o. daily. Family History Noncontributory Social History Denies tobacco Physical Exam Vital Signs Vital Signs Date Time Temp Pulse Resp B/P (MAP) Pulse Ox O2 Delivery O2 Flow Rate FiO2 09/29/17 10:27 09/29/17 09:18 77 18 93/66 (75) 98 Room Air 09/29/17 07:16 89 18 09/29/17 07:10 97.8 77 18 110/54 (72) 97 Physical Exam GENERAL: This is a well-nourished, well-developed patient, in no apparent distress. SKIN: No rashes, ecchymoses or lesions. Cool and dry. HEAD: Atraumatic. Normocephalic. No temporal or scalp tenderness. EYES: Pupils equal round and reactive. Extraocular motions intact. No scleral icterus. No injection or drainage. ENT: Nose without bleeding, purulent drainage or septal hematoma. Throat without erythema, tonsillar hypertrophy or exudate. Uvula midline. Airway patent. NECK: Trachea midline. No JVD or lymphadenopathy. Supple, nontender, no meningeal signs. CARDIOVASCULAR: Regular rate and rhythm without murmurs, gallops, or rubs. RESPIRATORY: Clear to auscultation. Breath sounds equal bilaterally. No wheezes , rales, or rhonchi. GASTROINTESTINAL: Abdomen soft, non-tender, nondistended. No hepato-splenomegaly , or palpable masses. No guarding. MUSCULOSKELETAL: Extremities without clubbing, cyanosis, or edema. Dressing over right upper extremity NEUROLOGICAL: Awake and alert. Cranial nerves II through XII intact. Motor and sensory grossly within normal limits. Five out of 5 muscle strength in all muscle groups. Normal speech. Laboratory Laboratory Tests Test 09/29/17 08:00 White Blood Count 14.9 Red Blood Count 4.50 Hemoglobin 13.3 Hematocrit 40.4 Mean Corpuscular Volume 89.8 Mean Corpuscular Hemoglobin 29.6 Mean Corpuscular Hemoglobin Concent 33.0 Red Cell Distribution Width 13.8 Platelet Count 284 Mean Platelet Volume 9.9 Neutrophils (%) (Auto) 37.2 Lymphocytes (%) (Auto) 48.1 Monocytes (%) (Auto) 7.4 Eosinophils (%) (Auto) 6.9 Basophils (%) (Auto) 0.4 Neutrophils # (Auto) 5.5 Lymphocytes # (Auto) 7.2 Monocytes # (Auto) 1.1 Eosinophils # (Auto) 1.0 Basophils # (Auto) 0.1 CBC Comment AUTO DIFF Differential Total Cells Counted 100 Neutrophils % (Manual) 36 Band Neutrophils % 4 Lymphocytes % 49 Monocytes % 6 Eosinophils % 5 Neutrophils # (Manual) 6.0 Differential Comment FINAL DIFF MANUAL Smudge Cells PRESENT Platelet Estimate NORMAL Platelet Morphology Comment NORMAL Red Cell Morphology Comment NORMAL Prothrombin Time 10.5 Prothromb Time International Ratio 1.0 Activated Partial Thromboplast Time 23.0 Blood Urea Nitrogen 14 Creatinine 1.11 Random Glucose 206 Calcium Level 9.1 Sodium Level 140 Potassium Level 3.2 Chloride Level 107 Carbon Dioxide Level 12.7 Anion Gap 20 Estimat Glomerular Filtration Rate 61 Result Diagram: 09/29/17 0800 09/29/17 0800 Imaging Last Impressions Radius/Ulna X-Ray 09/29/17 0000 Signed Impressions: Service Date/Time: Friday, September 29, 2017 07:34 - CONCLUSION: 1. No acute fracture or dislocation. 2. No definite radiopaque foreign body is demonstrated. However the soft tissues are obscured by overlying gauze material. Jasiel Mckeon MD Assessment and Plan Assessment and Plan 22 year-old female with Laceration right upper extremity s/p Right radial artery repair s/p Right FCR muscle repair Management per hand surgery Pain management accordingly Hypokalemia Replace electrolyte and monitor Elevated blood glucose Repeat BMP in a.m. History of depression Resume outpatient medication DVT prophylaxis: Low risk for PTE Thank you for this consultation Code Status Full code Discussed Condition With Patient, PACU nurse Omid Irwin MD Sep 29, 2017 14:36
[2017-09-29] MEDS ORDERED: RESP: ALBUTEROL 2.5 MG/IPRATROPIUM 0.5 MG NEB (PRN) NEB (14:45)
--- NOTE | 2017-09-29 14:45 | MP ---
cc: REGAN ROCK III, M.D. DATE OF SURGERY: 09/29/2017 PREOPERATIVE DIAGNOSIS Right forearm laceration and right forearm hematoma. POSTOPERATIVE DIAGNOSIS 1. Right radial injury transection. 2. Right flexor carpi radialis muscle laceration. 3. Complex stellate wound right volar forearm x2. PROCEDURE 1. Right radial artery repair, primary. 2. Right flexor carpi radialis muscle repair in the forearm. 3. Complex wound closure forearm more than 8 cm2. 4. Exploration penetrating injury right forearm. SURGEON Regan Rock III, MD PROCEDURE The patient was brought to the operating room and placed supine on the operating table. After the correct site and side of surgery was verified by everyone in the room, after adequate general anesthesia had been achieved, the right upper extremity was prepped and draped in traditional sterile surgical fashion. The existing sutures were removed. The wounds were opened. The wound was probed and a large amount of bright red pulsatile bleeding was encountered. Pressure was held and the axillary tourniquet was inflated to 200 mmHg for a total of 75 minutes. Exposure was obtained by extending the complex lacerations proximally and distally. Bipolar electrocautery was used as needed. Blunt dissection was performed. Exploration revealed 30% transection of the radial aspect of the flexor carpi radialis muscle and a complete transection of the radial artery in the middle of the forearm. The superficial branch of the radial nerve was visible and was completely intact and uninjured. The exploration to find the median and the ulnar nerve was also performed and these were identified and found to be uninjured and out of the plane of injury. The radial artery was addressed first, debrided gently with microscopic instruments under loupe magnification. Heparin flush was used proximally and distally. The ends were spatulated and then an end-to-end primary repair was performed using interrupted 8-0 Nylon sutures. Once this was performed before the last stitch was applied the area was flushed out. The axillary tourniquet was released. The distal micro clamp was released first, final two sutures were used to complete the anastomosis. The proximal vascular clamp was then released and the radial artery was full, pulsatile and soft with no evidence of bleeding. A Doppler ultrasound examination within the operating room revealed triphasic signals across the repair. A visual inspection also verified flow through the repair. Thorough irrigation was performed with saline multiple times throughout the case. The muscle bellies were then gently repaired by using 3-0 Vicryl sutures and the strongest areas of the fascia. The wound was then meticulously closed using multiple interrupted 3-0 Vicryl sutures in the deep subcutaneous tissue layer and then the skin edges reapproximated using multiple small segments of running 4-0 Chromic suture, precisely reapproximated the skin edges. The second small complex laceration proximal to the main one was also closed with a few interrupted simple 4-0 Chromic sutures. The hand and arm were thoroughly cleansed and dried. A bounding radial pulse was then palpable. Betadine and Adaptic dressings were applied on top of the wounds followed by a bulky short-arm dorsal blocking splint. The patient was awakened from anesthesia and transported to the Post Anesthesia Care Unit awake and in stable condition at the end of the case. Sponge, needle, instrument counts were correct at the end of the case as reported by nurses in the room. MD TRISTA Brunson III/ARELIS /1:10 PM /2:20 PM
[2017-09-29] MEDS: SODIUM CHLOR 0.9% 1000 ML INJ 1,000 ML IV SCH ×2 (15:00→23:34)
[2017-09-29 15:15] VITALS: TEMP 98.2
[2017-09-29] MEDS: ceFAZolin 1,000 MG/NS 100 ML IV SCH ×4 (15:20→20:00)
[2017-09-29] MEDS ORDERED: NORGESTREL ETHINYL ESTRADIOL PO SCH (15:33)
[2017-09-29 16:00] VITALS: BP 111/73; PULSE 69; RESP 15; O2SAT 96
[2017-09-30] MEDS ORDERED: IBUPROFEN 800 MG TAB PO PRN (01:00)
[2017-09-30] MEDS: ceFAZolin 1,000 MG/NS 100 ML IV SCH ×2 (03:59)
[2017-09-30] MEDS ORDERED: POTASSIUM CHLORIDE 10 MEQ CONTROLLED RELEASE TAB PO ONE (07:45)
--- NOTE | 2017-09-30 08:21 | HHI.PR ---
Subjective Remarks Follow up on patient with right forearm laceration. Patient demanding to leave now due to needing to go to work. Discussed with patient we would like to obtain new lab studies today due to her elevated white count, acute kidney injury and hypokalemia (supplementation ordered but patient has not received as of yet). Patient adamant she must leave now. Discussed with her close follow up with her PCP in the next day or two. Per Dr. Rod, she is to take a 325mg ASA daily. Recommended she eat bananas for day or so and have labs rechecked in next 24-48 hours. Patient left AMA. Objective Vitals Vital Signs Date Time Temp Pulse Resp B/P (MAP) Pulse Ox O2 Delivery O2 Flow Rate FiO2 09/29/17 16:00 69 15 111/73 (86) 96 Room Air 09/29/17 15:45 68 16 116/82 (93) 97 Room Air 09/29/17 15:30 82 14 115/74 (88) 96 Room Air 09/29/17 15:15 98.2 78 14 114/77 (89) 97 Room Air 09/29/17 15:00 78 15 114/69 (84) 99 Room Air 09/29/17 14:45 73 15 119/72 (88) 98 Room Air 09/29/17 14:30 77 14 113/67 (82) 98 Room Air 09/29/17 14:15 72 16 110/75 (87) 95 Room Air 09/29/17 14:00 84 16 120/82 (95) 95 Room Air 09/29/17 13:45 78 15 118/82 (94) 97 Room Air 09/29/17 13:30 74 16 116/79 (91) 94 Room Air 09/29/17 13:15 79 15 112/71 (85) 95 Nasal Cannula 2 09/29/17 13:02 97.7 82 22 127/75 (92) 95 Nasal Cannula 2 09/29/17 10:27 09/29/17 09:18 77 18 93/66 (75) 98 Room Air I/O 09/29/17 09/29/17 09/29/17 09/30/17 09/30/17 09/30/17 07:00 15:00 23:00 07:00 15:00 23:00 Intake Total 2050 ml 100 ml Output Total 1325 ml Balance 725 ml 100 ml Intake IV Total 2050 ml 100 ml Output Urine Total 250 ml Estimated Blood Loss 75 ml Other 1000 ml # Voids 1 Result Diagram: 09/29/17 0800 09/29/17 0800 Kat Ortiz Sep 30, 2017 08:21
[2017-09-30] MEDS ORDERED: SERTRALINE HCL 50 MG TAB PO SCH (09:00)
[2017-09-30] MEDS ORDERED: ASPIRIN EC 325 MG TABEC PO SCH (09:00)
== END 2017-09-30 08:05 | disposition left against medical advice (07) ==
LOC: NEPC 07:09 → HSDC 09:18 → NEDH 17:03 → NEPHCDU 17:38 → HSDC 09-30 08:05
PROVIDERS: ATTEND Orthopaedic Surgery Hand Surgery
DX: S51.811A Laceration without foreign body of right forearm, initial encounter (principal); S55.111A Laceration of radial artery at forearm level, right arm, initial encounter; W25.XXXA Contact with sharp glass, initial encounter; E87.6 Hypokalemia; D72.829 Elevated white blood cell count, unspecified; N17.9 Acute kidney failure, unspecified
CPT/HCPCS: 01840; 12002; 12032; 35206; 73090; 80048; 85007; 85027; 85610; 85730; 96361; 96365; 96375; 99284; J0690; J1100; J1644; J2270; J2405; J2550; J3010; J7030